=== PATIENT | female | born 1995 | race Caucasian/White ===

== ENCOUNTER 2019-09-07 13:54 | Emergency (ER) | payer SELFPAY ==
[~2019-09-07] VITALS: Ht 172.7 cm; Wt 63.5 kg
[2019-09-07 13:56] VITALS: BP 106/64
== END 2019-09-07 15:30 | disposition left against medical advice (07) ==
LOC: EDBD 13:54 → ER 13:54
DX: R42 Dizziness and giddiness (principal); Z53.21 Procedure and treatment not carried out due to patient leaving prior to being seen by health care provider
CPT/HCPCS: 93005